=== PATIENT | male | born 1950 | race Caucasian/White ===

== ENCOUNTER 2022-10-22 23:24 | Emergency (ER) | payer OTHER ==
[2022-10-22 23:32] VITALS: BP 151/80; PULSE 78; RESP 20; TEMP 98.4; BMI 28.5
[2022-10-23] MEDS ORDERED: ACETAMINOPHEN 325 MG TABLET (FP) PO ONE (00:08)
[2022-10-23] MEDS ORDERED: ACETAMINOPHEN 325 MG TABLET (FP) ONE (00:18)
== END 2022-10-23 02:53 | disposition home or self-care (01) ==
LOC: JER 23:24
DX: M25.562 Pain in left knee (principal); M25.572 Pain in left ankle and joints of left foot; M79.605 Pain in left leg
CPT/HCPCS: 73562-TC-LT-FY; 73610-TC-LT-FY; 93971-LT; 99284-25